=== PATIENT | female | born 1955 | race Caucasian/White ===

== ENCOUNTER 2016-06-14 07:20 | Day surgery (SDC) | payer OTHER ==
--- NOTE | ~2016-06-14 | EGD ---
EGD REPORT [facility] [address] [place] [address] NAME: TATIANA UMAÑA : [birth year] STATUS : REG [facility]#: [id number] AGE: 61 ADM/REG DATE : 06/14/16 MR#: [id number] REPORT SERV DATE: 06/14/16 DICTATED BY: BRITT ROLAND III DATE: 06/14/16 REPORT STATUS : Draft TRANSCRIBED BY: [facility] DATE: 06/14/16 Endoscopy Center Patient Name: Tatiana Umaña Date of : 1955 Attending MD: BRITT ROLAND III, MD Procedure Date No Time: 06/14/2016 Procedure: Upper GI endoscopy Indications: Surveillance for malignancy due to personal history of Servin's esophagus, Heartburn Referring MD: Annie GONZÁLES Medicines: Propofol per Anesthesia Complications: No immediate complications. Procedure: Pre-Anesthesia Assessment: - ASA Grade Assessment: III - A patient with severe systemic disease. After obtaining informed consent, the endoscope was passed under direct vision. Throughout the procedure, the patient's blood pressure, pulse, and oxygen saturations were monitored continuously. The GIF H190 [id number] was introduced through the mouth, and advanced to the jejunum. The upper GI endoscopy was accomplished with ease. The patient tolerated the procedure well. Findings: There were esophageal mucosal changes secondary to established short-segment Servin's disease present in the lower third of the esophagus. The maximum longitudinal extent of these mucosal changes was 0.8 cm in length. Biopsies were taken with a cold forceps for histology. Evidence of a gastric bypass was found. A gastric pouch with a normal size was found. The staple line appeared intact. The gastrojejunal anastomosis was characterized by healthy appearing mucosa. This was traversed. The oohxc-cl-zrnzzib limb was characterized by healthy appearing mucosa. No gross lesions were noted in the entire examined stomach. The examined jejunum was normal. Impression: - Esophageal mucosal changes secondary to established short-segment Servin's disease. Biopsied. - Gastric bypass with a normal-sized pouch intact staple line. - No gross lesions in the stomach. - Normal examined jejunum. Recommendation: - Patient has a contact number available for emergencies. The signs and symptoms of potential delayed EGD REPORT [address] [place]. [address] NAME: TATIANA UMAÑA : [birth year] STATUS : [place] [facility] [place]#: [id number] AGE: 61 ADM/REG DATE : 06/14/16 MR#: [id number] REPORT SERV DATE: 06/14/16 DICTATED BY: BRITT ROLAND III DATE: 06/14/16 REPORT STATUS : Draft TRANSCRIBED BY: [employer] DATE: 06/14/16 complications were discussed with the patient. Return to normal activities tomorrow. Written discharge instructions were provided to the patient. - Discharge patient to home. - Return to previous diet. - Continue present medications. - Continue present medications. - Await pathology results. Procedure Code(s): --- Professional --- 08552, Esophagogastroduodenoscopy, flexible, transoral; with biopsy, single or multiple Diagnosis Code(s): --- Professional --- K22.70, Servin's esophagus without dysplasia Z98.84, Bariatric surgery status R12, Heartburn CPT copyright 2013 [employer]. All rights reserved. The codes documented in this report are preliminary and upon nurse companion review may be revised to meet current compliance requirements. BRITT ROLAND III, MD 06/14/2016 9:03 AM This report has been signed electronically. Number of Addenda: 0 Note Initiated On: 06/14/2016 8:46 AM Scope Withdrawal Time 0 hours 0 minutes 0 seconds [id number] [place] [id number]
--- NOTE | ~2016-06-14 | EGD ---
EGD REPORT [facility] [address] [place] [address] NAME: TATIANA UMAÑA : [birth year] STATUS : REG [facility] [place] PAT#: [id number] AGE: 61 ADM/REG DATE : 06/14/16 MR#: [id number] REPORT SERV DATE: 06/14/16 DICTATED BY: BRITT ROLAND III DATE: 06/14/16 REPORT STATUS : Draft [facility]: [facility] DATE: 06/14/16 Endoscopy Center Patient Name: Tatiana Umaña Date of : 1955 Attending MD: BRITT ROLAND III, MD Procedure Date No Time: 06/14/2016 Procedure: Colonoscopy Indications: High risk colon cancer surveillance: Personal history of colonic polyps Referring MD: Annie GONZÁLES Medicines: Propofol per Anesthesia Complications: No immediate complications. Procedure: Pre-Anesthesia Assessment: - ASA Grade Assessment: III - A patient with severe systemic disease. After I obtained informed consent, the scope was passed under direct vision. Throughout the procedure, the patient's blood pressure, pulse, and oxygen saturations were monitored continuously. The [facility] [id number] was introduced through the anus and advanced to the cecum, identified by appendiceal orifice and ileocecal valve. The colonoscopy was performed with ease. The patient tolerated the procedure well. The quality of the bowel preparation was good. Findings: Multiple diverticula were found in the sigmoid colon. A sessile polyp was found in the rectum. The polyp was 5 mm in size. The polyp was removed with a cold biopsy forceps. Resection and retrieval were complete. Seven sessile polyps were found in the transverse colon. The polyps were 5 to 7 mm in size. These polyps were removed with a cold snare. Resection and retrieval were complete. Four sessile polyps were found in the ascending colon. The polyps were 5 to 6 mm in size. These polyps were removed with a cold snare. Resection and retrieval were complete. A sessile polyp was found in the cecum. The polyp was 4 mm in size. The polyp was removed with a cold biopsy forceps. Resection and retrieval were complete. Internal hemorrhoids were found during retroflexion. Impression: - Diverticulosis in the sigmoid colon. - One 5 mm polyp in the rectum. Resected and retrieved. - Seven 5 to 7 mm polyps in the transverse colon. Resected and retrieved. EGD REPORT [address] [place]. [address] NAME: TATIANA UMAÑA : [birth year] STATUS : REG [facility]#: [id number] AGE: 61 ADM/REG DATE : 06/14/16 MR#: [id number] REPORT SERV DATE: 06/14/16 DICTATED BY: BRITT ROLAND III DATE: 06/14/16 REPORT STATUS : Draft TRANSCRIBED BY: [employer] DATE: 06/14/16 - Four 5 to 6 mm polyps in the ascending colon. Resected and retrieved. - One 4 mm polyp in the cecum. Resected and retrieved. - Internal hemorrhoids. Recommendation: - Patient has a contact number available for emergencies. The signs and symptoms of potential delayed complications were discussed with the patient. Return to normal activities tomorrow. Written discharge instructions were provided to the patient. - Discharge patient to home. - High fiber diet indefinitely. - Continue present medications. - Await pathology results. Procedure Code(s): --- Professional --- 50162, Colonoscopy, flexible, proximal to splenic flexure; with removal of tumor(s), polyp(s), or other lesion(s) by snare technique 79948, 59, Colonoscopy, flexible, proximal to splenic flexure; with biopsy, single or multiple Diagnosis Code(s): --- Professional --- K64.8, Other hemorrhoids K57.30, Diverticulosis of large intestine without perforation or abscess without bleeding D12.0, Benign neoplasm of cecum D12.2, Benign neoplasm of ascending colon D12.3, Benign neoplasm of transverse colon K62.1, Rectal polyp Z86.010, Personal history of colonic polyps CPT copyright 2013 [employer]. All rights reserved. The codes documented in this report are preliminary and upon information technology consultant review may be revised to meet current compliance requirements. BRITT ROLAND III, MD 06/14/2016 9:31 AM This report has been signed electronically. Number of Addenda: 0 Note Initiated On: 06/14/2016 8:40 AM Scope Withdrawal Time 0 hours 19 minutes 10 seconds EGD REPORT [facility] [address] [address] NAME: TATIANA UMAÑA : [birth year] STATUS : REG [facility]#: [id number] AGE: 61 ADM/REG DATE : 06/14/16 MR#: [id number] REPORT SERV DATE: 06/14/16 DICTATED BY: BRITT ROLAND III DATE: 06/14/16 REPORT STATUS : Draft TRANSCRIBED BY: [employer] DATE: 06/14/16 [address] [address]
[~2016-06-14 07:20] MED LIST: CALTRA600D PO; CENTRUM PO; CRESTOR10 PO; DETROL2 PO; DULERA 100 MCG/13 GM INH; HARD NAILS OR; LEXAPRO10 PO; LEXAPRO20 PO; LOTREL1 CA3 PO; MULTIPLE VIT PO; NASONEX NAS; NORV5 PO; PROTONIX PO; SAMBUCOL PO; SINGULAIR1 PO; SLEEP AID25 MG PO; VITAMIN D1000 UNI1 PO; ZETIA PO; ZYRTEC ALLGY10 MG PO; [UNRECOGNIZED DRUG - OTHER] PO; [UNRECOGNIZED DRUG - OTHER] PO; [UNRECOGNIZED DRUG - OTHER] PO; [UNRECOGNIZED DRUG - REMARK] IM
== END 2016-06-14 23:59 | disposition home or self-care (01) ==
LOC: DMU 07:20
PROVIDERS: Internal Medicine Gastroenterology
PROC: 0DBL8ZZ Excision of Transverse Colon, Via Natural or Artificial Opening Endoscopic (ICD-10-PCS; 2016-06-14)
PROC: 0DB38ZX Excision of Lower Esophagus, Via Natural or Artificial Opening Endoscopic, Diagnostic (ICD-10-PCS; principal; 2016-06-14 09:00)
PROC: 0DBP8ZZ Excision of Rectum, Via Natural or Artificial Opening Endoscopic (ICD-10-PCS; 2016-06-14 09:00)
PROC: 0DBK8ZZ Excision of Ascending Colon, Via Natural or Artificial Opening Endoscopic (ICD-10-PCS; 2016-06-14 09:00)
DX: D12.2 Benign neoplasm of ascending colon (principal); D12.0 Benign neoplasm of cecum; D12.3 Benign neoplasm of transverse colon; K62.1 Rectal polyp; K22.70 Barrett's esophagus without dysplasia; K57.30 Diverticulosis of large intestine without perforation or abscess without bleeding; K64.8 Other hemorrhoids; K21.9 Gastro-esophageal reflux disease without esophagitis; I10 Essential (primary) hypertension; F32.9 Major depressive disorder, single episode, unspecified; G47.33 Obstructive sleep apnea (adult) (pediatric); M19.90 Unspecified osteoarthritis, unspecified site; E78.00 Pure hypercholesterolemia, unspecified; E66.01 Morbid (severe) obesity due to excess calories; Z68.43 Body mass index [BMI] 50.0-59.9, adult; Z98.84 Bariatric surgery status; Z86.010 Personal history of colon polyps; Z88.0 Allergy status to penicillin; Z79.899 Other long term (current) drug therapy; Z88.2 Allergy status to sulfonamides; Z90.49 Acquired absence of other specified parts of digestive tract; Z98.890 Other specified postprocedural states
CPT/HCPCS: 88305